=== PATIENT | female | born 1995 | race Caucasian/White ===

== ENCOUNTER 2021-06-02 20:07 | Emergency (ER) | payer OTHER ==
[~2021-06-02 20:07] MED LIST: ALL DAY ALLERGY10 M2 PO; COLACE 100MG C100 MG PO; IBUPROFEN600 MG PO; KEFLEX CAP 500500 MG PO; PREDNISONE20 MG PO
[2021-06-02 21:12] LABS: HEMOGLOBIN 13.2 gm/dl (12.3-15.3); RED BLOOD COUNT 5.33 M/UL (4.00-5.10); WHITE BLOOD COUNT 13.5 K/UL (4.5-11.0)
[2021-06-02 21:33] LABS: BUN/CREATININE RATIO 13 (0-10)
== END 2021-06-03 00:27 | disposition home or self-care (01) ==
LOC: ER1 20:07
PROVIDERS: Physician Assistant
DX: R07.89 Other chest pain (principal); E10.9 Type 1 diabetes mellitus without complications; K21.9 Gastro-esophageal reflux disease without esophagitis; I10 Essential (primary) hypertension
CPT/HCPCS: 71045; 73030; 80053; 82550; 82553; 84484; 84703; 85025; 85379; 93005; 99285